=== PATIENT | male | born 1980 | race Caucasian/White ===

== ENCOUNTER 2017-09-08 11:53 | Inpatient (IN) | payer SELFPAY ==
[2017-09-08] MEDS ORDERED: NORMAL SALINE 1000 ML 1,000 ML IV ONE (12:19)
[2017-09-08] MEDS ORDERED: CEFTRIAXONE INJ 1000 MG VIAL IV ONE (12:22)
--- NOTE | 2017-09-08 12:44 | ER Document Report ---
ED General - General Chief Complaint: Abdominal Pain Stated Complaint: ABDOMINAL PAIN Time Seen by Provider: 09/08/17 12:09 Notes: Patient says he has been having swelling of her lower extremities for the past 3 weeks. It is so swollen he is unable to walk. For the past week and a half patient says is been coughing up blood. Says he is having difficulty with breathing. Also complaining of abdominal pains and that his abdomen is swollen. Has not had any vomiting, but has had diarrhea 3 or 4 times a day over the last 3 weeks. No blood seen. Has not had any fever. Patient has a history of Crohn's disease. Never had any surgery for anything. Patient also has a history of IV drug use, but says he has not used any for at least 2 years. Patient is here with his mother who provides some historical information. TRAVEL OUTSIDE OF THE [place] IN LAST 30 DAYS: No - Related Data Allergies/Adverse Reactions: No Known Allergies Allergy (Verified 09/08/17 13:06) Past Medical History - Social History Smoking Status: Current Every Day Smoker Family History: Reviewed & Not Pertinent, Other Endocrine Medical History: Denies: Hx Diabetes Mellitus Type 1, Hx Diabetes Mellitus Type 2 GI Medical History: Reports: Hx Crohn's Disease - Never had any surgeries Review of Systems - Review of Systems Notes: REVIEW OF SYSTEMS: CONSTITUTIONAL : Denies fever. Has felt generalized weakness. EENT: Denies eye, ear, nose or mouth or throat pain or other symptoms. CARDIOVASCULAR: Denies chest pain. RESPIRATORY: Has had chest congestion and a cough, productive of blood at times. Short of breath at times, as well. GASTROINTESTINAL: Complains of generalized abdominal pain and tenderness. No nausea or vomiting, but has diarrhea, see HPI. GENITOURINARY: Denies difficulty or painful urinating, urinary frequency, blood in urine. MUSCULOSKELETAL: Denies back or neck pain. Denies joint pain or swelling. SKIN: Denies rash or skin lesions. Bilateral lower extremity edema, +3 bilaterally. Pinkish purplish hue to the skin of both lower legs. Good capillary refill, however. NEUROLOGICAL: Denies LOC or altered mental status. Denies headache. Denies sensory loss or motor deficits. ALL OTHER SYSTEMS REVIEWED AND NEGATIVE. Physical Exam - Vital signs Vitals: Temp Pulse Resp BP Pulse Ox 98.8 F 134 H 32 H 77/42 L 85 L 09/08/17 12:01 09/08/17 12:01 09/08/17 12:01 09/08/17 12:01 09/08/17 12:01 Interpretation: Hypotensive, Tachycardic. No: Hypoxic - Notes Notes: PHYSICAL EXAMINATION: GENERAL: Ill-appearing. Hypotensive and tachycardic. HEAD: Atraumatic, normocephalic. EYES: Pupils equal round and reactive to light, extraocular movements intact. ENT: oropharynx clear without exudates. Moist mucous membranes. NECK: Normal range of motion, supple. LUNGS: Breath sounds clear and equal bilaterally. HEART: Regular rate and rhythm without murmurs. Heart rate about 120 at bedside. ABDOMEN: Diffusely tender throughout the entire abdomen, perhaps with some slight guarding. No masses. No rebound present. BACK: No tenderness throughout entire back. EXTREMITIES: Normal range of motion without pain. Bilateral lower extremity edema, +3 bilaterally. Pinkish purplish hue to the skin of both lower legs. Good capillary refill, however. Negative Homans sign bilaterally. NEUROLOGICAL: Normal speech, gait not tested, as patient is too weak to stand. Normal sensory, motor, and reflex exams. Awake, alert, and oriented x3. PSYCH: Normal mood, normal affect. SKIN: Patient has numerous sites of previous injections of drugs that are now scarred on both forearms. Course - Re-evaluation Re-evalutation: 09/08/17 17:53 Patient's chest x-ray showed multiple bilateral pneumonias. Urinalysis looks like a UTI. Abdomen CT shows huge spleen. Lab work shows his platelet count of only 14,000. Significant bandemia and shift in differential for the CBC. Hemoglobin 5.9. Patient had a central line placed by Dr. Martinez. Patient was given initially a gram of Rocephin IV as well as a couple of liters of saline. It was at this point that the hospitalist was contacted who accepted care of the patient and he will be admitted to ICU. Patient's mother made aware by me of the severity of his situation and condition. Patient was question as to whether he might be HIV positive and he denied being so. - Vital Signs Vital signs: Temp Pulse Resp BP Pulse Ox 100.4 F 134 H 34 H 77/46 L 99 09/08/17 13:59 09/08/17 12:01 09/08/17 17:01 09/08/17 17:00 09/08/17 17:01 - Laboratory Result Diagrams: 09/08/17 13:50 09/08/17 12:25 Laboratory results interpreted by me: 09/08/17 09/08/17 09/08/17 12:25 12:25 12:25 RBC Hgb Hct MCV MCH RDW Plt Count Seg Neuts % (Manual) Lymphocytes % (Manual) Monocytes % (Manual) Abs Lymphs (Manual) PT VBG pCO2 30.1 L VBG HCO3 17.0 L Sodium 123.7 L Potassium 3.2 L Chloride 87 L Carbon Dioxide 15 L Anion Gap 22 H BUN 68 H Creatinine 3.84 H Est GFR ( Amer) 22 L Est GFR (Non-Af Amer) 18 L Glucose 74 L Lactic Acid 8.3 H Calcium 7.5 L Total Bilirubin 1.4 H Direct Bilirubin 1.0 H ALT 13 L Total Protein 6.2 L Albumin 2.6 L TSH Urine Protein Urine Blood Urine Urobilinogen Ur Leukocyte Esterase 09/08/17 09/08/17 09/08/17 13:50 13:50 13:50 RBC 2.22 L Hgb 5.9 L Hct 17.6 L MCV 79 L MCH 26.4 L RDW 18.7 H Plt Count 14 L* Seg Neuts % (Manual) 94 H Lymphocytes % (Manual) 2 L Monocytes % (Manual) 1 L Abs Lymphs (Manual) 0.1 L PT 30.7 H VBG pCO2 VBG HCO3 Sodium Potassium Chloride Carbon Dioxide Anion Gap BUN Creatinine Est GFR ( Amer) Est GFR (Non-Af Amer) Glucose Lactic Acid Calcium Total Bilirubin Direct Bilirubin ALT Total Protein Albumin TSH 0.26 L Urine Protein Urine Blood Urine Urobilinogen Ur Leukocyte Esterase 09/08/17 14:40 RBC Hgb Hct MCV MCH RDW Plt Count Seg Neuts % (Manual) Lymphocytes % (Manual) Monocytes % (Manual) Abs Lymphs (Manual) PT VBG pCO2 VBG HCO3 Sodium Potassium Chloride Carbon Dioxide Anion Gap BUN Creatinine Est GFR ( Amer) Est GFR (Non-Af Amer) Glucose Lactic Acid Calcium Total Bilirubin Direct Bilirubin ALT Total Protein Albumin TSH Urine Protein 30 H Urine Blood MODERATE H Urine Urobilinogen 4.0 H Ur Leukocyte Esterase LARGE H - Diagnostic Test Radiology reviewed: Image reviewed, Reports reviewed - CT of the abdomen and pelvis without contrast shows patient has a significantly enlarged spleen. Findings of the bowel consistent with Crohn's. Pneumonia seen in the bases of the lungs bilaterally. Radiology results interpreted by me: 09/08/17 17:56 Chest x-ray with bilateral multiple pneumonia. - EKG Interpretation by Me EKG shows normal: Sinus rhythm Rate: Tachycardia Critical Care Note - Critical Care Note Total time excluding time spent on procedures (mins): 60 Discharge - Discharge Clinical Impression: Sepsis, Hypotension, Pneumonia, Thrombocytopenia, Splenomegaly, History of substance abuse Condition: Serious Disposition: ADMITTED INPATIENT Admitting Provider: Hospitalist Unit Admitted: ICU
[2017-09-08 12:49] LABS: VENOUS BLOOD BASE EXCESS -7.3 mmol/L; VENOUS BLOOD PCO2 30.1 mmHg (35-63); VENOUS BLOOD PH 7.37 (7.30-7.42)
--- NOTE | 2017-09-08 13:07 | EKG REPORT ---
SEVERITY:- BORDERLINE ECG - SINUS TACHYCARDIA LOW VOLTAGE IN FRONTAL LEADS BORDERLINE T WAVE ABNORMALITIES : Confirmed by: Olegario Stewart MD 08-Sep-2017 13:06:04
[2017-09-08 13:13] LABS: ALANINE AMINOTRANSFERASE 13 U/L (21-72); ALBUMIN 2.6 g/dL (3.5-5.0); ALKALINE PHOSPHATASE 68 U/L (38-126); ASPARTATE AMINO TRANSFERASE 44 U/L (17-59); BILIRUBIN,TOTAL 1.4 mg/dL (0.2-1.3); BLOOD UREA NITROGEN 68 mg/dL (7-20); CALCIUM 7.5 mg/dL (8.4-10.2); GLUCOSE 74 mg/dL (75-110); POTASSIUM 3.2 mmol/L (3.6-5.0); TOTAL PROTEIN 6.2 g/dL (6.3-8.2)
--- NOTE | 2017-09-08 13:19 | RADIOLOGY REPORT (SQ) ---
EXAM DESCRIPTION: CHEST SINGLE VIEW COMPLETED DATE/TIME: 09/08/2017 1:09 pm REASON FOR STUDY: Difficulty breathing and shortness of breath. COMPARISON: None. EXAM PARAMETERS: NUMBER OF VIEWS: One view. TECHNIQUE: Single frontal radiographic view of the chest acquired. RADIATION DOSE: NA LIMITATIONS: None. FINDINGS: LUNGS AND PLEURA: Infiltrate in the left lower lobe and infiltrate in the left upper lobe. Patchy densities in the right lower lobe and lateral inferior right upper lobe. MEDIASTINUM AND HILAR STRUCTURES: No masses. Contour normal. HEART AND VASCULAR STRUCTURES: Heart normal in size. Normal vasculature. BONES: No acute findings. HARDWARE: None in the chest. OTHER: No other significant finding. IMPRESSION: SEVERAL AREAS OF INFILTRATE CONCERNING FOR PNEUMONIA. TECHNICAL DOCUMENTATION: JOB ID: [id number] [employer]- All Rights Reserved Reading location - IP/workstation name: [email or web address]
[2017-09-08 13:22] LABS: CARBON DIOXIDE 15 mmol/L (22-30); CHLORIDE 87 mmol/L (98-107); SODIUM 123.7 mmol/L (137-145)
[2017-09-08 13:26] LABS: ANION GAP 22 (5-19)
[2017-09-08] MEDS ORDERED: FENTANYL CITRATE INJ/PF 100 MCG/2 ML AMPUL IV ONE (14:01)
[2017-09-08] MEDS ORDERED: ONDANSETRON HCL INJ/PF 4 MG/2 ML SDV IV PRN (14:13)
[2017-09-08] MEDS ORDERED: OXYCODONE-ACETAMINOPHEN 5-325 MG TABLET PO PRN (14:13)
[2017-09-08] MEDS ORDERED: NORMAL SALINE 1000 ML 1,000 ML IV PRN (14:13)
[2017-09-08] MEDS ORDERED: ALBUTEROL SULFATE 0.083% NEB 2.5 MG/3 ML AMPUL NEB PRN (14:13)
[2017-09-08] MEDS ORDERED: ZOLPIDEM TARTRATE 5 MG TABLET PO PRN (14:13)
[2017-09-08] MEDS ORDERED: ACETAMINOPHEN 325 MG TABLET PO PRN (14:13)
[2017-09-08] MEDS ORDERED: PHARMACY COMMUNICATION ORDER MC NR (14:15)
[2017-09-08 14:19] LABS: HEMATOCRIT 17.6 % (37.9-51.0); MEAN CORPUSCULAR HEMOGLOBIN 26.4 pg (27.0-33.4); MEAN CORPUSCULAR HGB CONC 33.3 g/dL (32.0-36.0); MEAN CORPUSCULAR VOLUME 79 fl (80-97); RED BLOOD COUNT 2.22 10^6/uL (4.35-5.55); RED CELL DISTRIBUTION WIDTH 18.7 % (11.5-14.0); WHITE BLOOD COUNT 6.2 10^3/uL (4.0-10.5)
[2017-09-08 14:27] LABS: INTERNATIONAL RATION (INR) 2.78; PROTHROMBIN TIME 30.7 SEC (11.4-15.4)
[2017-09-08 14:30] LABS: HEMOGLOBIN 5.9 g/dL (13.5-17.0)
[2017-09-08 14:31] LABS: PLATELET COUNT 14 10^3/uL (150-450)
[2017-09-08 15:07] LABS: ABSOLUTE LYMPHOCYTES# (MANUAL) 0.1 10^3/uL (0.5-4.7); ABSOLUTE MONOCYTES # (MANUAL) 0.1 10^3/uL (0.1-1.4); BAND NEUTROPHILS % (MANUAL) 3 % (3-5); BASOPHILS % (MANUAL) 0 % (0-2); EOSINOPHILS % (MANUAL) 0 % (0-6); LYMPHOCYTES % (MANUAL) 2 % (13-45); MONOCYTES % (MANUAL) 1 % (3-13); SEGMENTED NEUTROPHILS % (MAN) 94 % (42-78); TOTAL CELLS COUNTED 100; TOXIC GRANULATION 2+
[2017-09-08 15:08] LABS: ANISOCYTOSIS 2+; HYPOCHROMASIA 1+; OVALOCYTES 2+; PLATELET COMMENT DECREASED; POIKILOCYTOSIS 2+; POLYCHROMASIA SLIGHT; ROULEAUX 1+; TARGET CELLS SLIGHT; TOXIC VACUOLATION PRESENT
[2017-09-08 15:29] LABS: APPEARANCE,URINE CLOUDY; BILIRUBIN,URINE NEGATIVE (NEGATIVE); GLUCOSE, URINE NEGATIVE (NEGATIVE); KETONES,URINE NEGATIVE (NEGATIVE); LEUKOCYTE ESTERASE,URINE LARGE (NEGATIVE); NITRITE,URINE NEGATIVE (NEGATIVE); PROTEIN,URINE 30 mg/dL (NEGATIVE); URINE SPECIFIC GRAVITY 1.014
[2017-09-08 15:30] LABS: COLOR,URINE YELLOW
[2017-09-08] MEDS ORDERED: METHYLPREDNISOLONE INJ 40 MG/1 ML SDV IV ONE (15:30)
--- NOTE | 2017-09-08 15:35 | RADIOLOGY REPORT (SQ) ---
EXAM DESCRIPTION: CT ABD/PELVIS NO ORAL OR IV COMPLETED DATE/TIME: 09/08/2017 3:04 pm REASON FOR STUDY: Abdominal pain, low blood pressure, Hx Crohn's COMPARISON: 01/16/2013 TECHNIQUE: CT scan of the abdomen and pelvis performed without intravenous or oral contrast. Images reviewed with lung, soft tissue, and bone windows. Reconstructed coronal and sagittal MPR images revi ewed. All images stored on PACS. All CT scanners at this facility use dose modulation, iterative reconstruction, and/or weight based d osing when appropriate to reduce radiation dose to as low as reasonably achievable (ALARA). [facility]: Dose Right [facility]: CareDose [facility]: Dose Right [facility]: Teradose 4D [facility]: Smart Mobileum RADIATION DOSE: CT Rad equipment meets quality standard of care and radiation dose reduction techniq ues were employed. CTDIvol: 5.1 mGy. DLP: 289 mGy-cm.mGy. LIMITATIONS: None. FINDINGS: LOWER CHEST: There is considerable multicentric opacification in both lower lung manuel. There is the appearance of consolidation in the lower lobes and smaller areas of ground-glass opacifi cation. NON-CONTRASTED LIVER, SPLEEN, ADRENALS: Liver is unremarkable. Splenomegaly is present. Adrenals ar e normal. PANCREAS: No masses. No peripancreatic inflammatory changes. GALLBLADDER: No identified stones by CT criteria. No inflammatory changes to suggest cholecystitis. RIGHT KIDNEY AND URETER: No suspicious masses. Assessment limited by lack of IV contrast. No signif icant calcifications. No hydronephrosis or hydroureter. LEFT KIDNEY AND URETER: No suspicious masses. Assessment limited by lack of IV contrast. No signifi cant calcifications. No hydronephrosis or hydroureter. AORTA AND RETROPERITONEUM: No aneurysm. No retroperitoneal masses or adenopathy. BOWEL AND PERITONEAL CAVITY: There is thickening of the wall of some small bowel loops. APPENDIX: Not identified. PELVIS, BLADDER, AND ABDOMINAL WALL:Urinary bladder is normal. No free fluid. BONES: No significant findings. OTHER: No other significant finding. IMPRESSION: 1. Multicentric pneumonia is in both lower lungs. Possible septic emboli. Consider CT the chest for further evaluation. 2. Marked splenomegaly. 3. There is wall thickening in small bowel loops consistent with the history of Crohn's. COMMENT: Quality ID # [id number]: Final reports with documentation of one or more dose reduction techniques (e.g., Automated exposure control, adjustment of the mA and/or kV according to patient size, use of iterative reconstruction technique) TECHNICAL DOCUMENTATION: JOB ID: [id number] [employer]- All Rights Reserved Reading location - IP/workstation name: [email or web address]
[2017-09-08 15:40] LABS: URINE AMPHETAMINES SCREEN NEGATIVE; URINE BARBITURATES SCREEN NEGATIVE; URINE BENZODIAZEPINES SCREEN NEGATIVE; URINE COCAINE SCREEN NEGATIVE; URINE MARIJUANA (THC) SCREEN NEGATIVE; URINE METHADONE SCREEN NEGATIVE; URINE PHENCYCLIDINE SCREEN NEGATIVE
[2017-09-08] MEDS ORDERED: TUBERCULIN,PURIF.PROT.DERIV. 5 TU/0.1 ML TEST 1 ML VIAL ID ONE (16:00)
[2017-09-08] MEDS ORDERED: VANCOMYCIN HCL 0 MG in DEXTROSE 5%-WATER 250 ML IV NR (16:30)
--- NOTE | 2017-09-08 16:39 | PDOC H&P ---
History of Present Illness Admission Date/PCP: September 08, 2017 No PCP History of Present Illness: LORELEI ALFARO is a 36 year old male was brought by his mother by private vehicle to ED. Accordingly patient had been sick for the past 2 weeks. Today he had been spitting up blood. Patient states that he has been having abdominal pain. Had not been eating. He complains of generalized weakness. Patient also complains of chills and some fever. He has a history of Crohn's disease however has not been taking his regular medications because of losing his insurance. Upon arrival to emergency room blood pressure was in the low 70s and there was poor IV access. Due to patient's presentation a central line was inserted for fluid resuscitation.Our service was consulted and at the time of consult blood work was pending. We recommended that ED physician to request a CT scan of the chest and abdomen and pelvis after evaluating patient. We inquired patient if he does have a history of HIV however he denied. Patient does have a history of drug abuse but at the present time he states that he takes medication that is oxymorphone and OxyIR for his chronic pain. Patient was explained about the seriousness of his medical condition. He initially wanted not to be resuscitated but was amenable to go for full code at least for the first 48 hours and his mother will be his overall gait for decision making if he were to turn for the worse Past Medical History Cardiac Medical History: Reports: None Pulmonary Medical History: Reports: None EENT Medical History: Reports: None Neurological Medical History: Reports: None Endocrine Medical History: Reports: None Renal/ Medical History: Reports: None Malignancy Medical History: Reports: None GI Medical History: Reports: Crohn's Disease Musculoskeltal Medical History: Reports: None Skin Medical History: Reports: None Psychiatric Medical History: Reports: Substance Abuse, Tobacco Dependency Social History Smoking Status: Former Smoker Drugs: Marijuana - Advance Directive Resuscitation Status: Full Code Surrogate healthcare decision maker:: His mother Family History Family History: Reviewed & Not Pertinent, Other Parental Family History Reviewed: Yes Children Family History Reviewed: Yes Sibling(s) Family History Reviewed.: Yes Medication/Allergy Allergies/Adverse Reactions: No Known Allergies Allergy (Verified 09/08/17 13:06) Review of Systems Constitutional: PRESENT: anorexia, chills, fatigue, weakness Eyes: ABSENT: visual disturbances Ears: ABSENT: hearing changes Nose, Mouth, and Throat: ABSENT: headache(s), mouth pain, sore throat Cardiovascular: PRESENT: dyspnea on exertion, edema. ABSENT: chest pain Respiratory: PRESENT: dyspnea, hemoptysis Gastrointestinal: PRESENT: abdominal pain, nausea. ABSENT: vomiting Genitourinary: ABSENT: dysuria, hematuria Musculoskeletal: PRESENT: deformity. ABSENT: back pain Neurological: PRESENT: weakness Psychiatric: ABSENT: anxiety, hallucinations Endocrine: ABSENT: polydipsia, polyphagia, polyuria Hematologic/Lymphatic: ABSENT: lymphadenopathy Physical Exam Vital Signs: Temp Pulse Resp BP Pulse Ox 100.4 F 134 H 32 H 77/42 L 85 L 09/08/17 13:59 09/08/17 12:01 09/08/17 12:01 09/08/17 12:01 09/08/17 12:01 General appearance: PRESENT: cooperative, disheveled, thin Head exam: PRESENT: atraumatic, normocephalic Eye exam: PRESENT: conjunctiva pale, EOMI, PERRLA, other - Sunken eyes Ear exam: PRESENT: normal external ear exam. ABSENT: bleeding, drainage Mouth exam: PRESENT: dry mucosa, neck supple, tongue midline Teeth exam: PRESENT: poor dentation Neck exam: PRESENT: full ROM. ABSENT: JVD, lymphadenopathy, tenderness, thyromegaly, tracheal deviation Respiratory exam: PRESENT: crackles. ABSENT: tachypnea Cardiovascular exam: PRESENT: tachycardia. ABSENT: diastolic murmur, systolic murmur Vascular exam: PRESENT: pallor GI/Abdominal exam: PRESENT: guarding, hypoactive bowel sounds, tenderness. ABSENT: distended Neurological exam: PRESENT: alert, awake, oriented to person, oriented to place , oriented to time, oriented to situation, CN II-XII grossly intact Psychiatric exam: PRESENT: depressed Skin exam: PRESENT: pallor Results Laboratory Results: 09/08/17 12:25 09/08/17 09/08/17 09/08/17 12:25 12:25 12:25 WBC Cancelled RBC Cancelled Hgb Cancelled Hct Cancelled MCV Cancelled MCH Cancelled MCHC Cancelled RDW Cancelled Plt Count Cancelled Seg Neutrophils % Cancelled Lymphocytes % Cancelled Monocytes % Cancelled Eosinophils % Cancelled Basophils % Cancelled Absolute Neutrophils Cancelled Absolute Lymphocytes Cancelled Absolute Monocytes Cancelled Absolute Eosinophils Cancelled Absolute Basophils Cancelled VBG pH VBG pCO2 VBG HCO3 VBG Base Excess Sodium 123.7 L Potassium 3.2 L Chloride 87 L Carbon Dioxide 15 L Anion Gap 22 H BUN 68 H Creatinine 3.84 H Est GFR ( Amer) 22 L Est GFR (Non-Af Amer) 18 L Glucose 74 L Lactic Acid 8.3 H Calcium 7.5 L Total Bilirubin 1.4 H AST 44 ALT 13 L Alkaline Phosphatase 68 Total Protein 6.2 L Albumin 2.6 L 09/08/17 09/08/17 12:25 13:50 WBC RBC Hgb Hct MCV MCH MCHC RDW Plt Count Seg Neutrophils % Not Reportable Lymphocytes % Not Reportable Monocytes % Not Reportable Eosinophils % Not Reportable Basophils % Not Reportable Absolute Neutrophils Not Reportable Absolute Lymphocytes Not Reportable Absolute Monocytes Not Reportable Absolute Eosinophils Not Reportable Absolute Basophils Not Reportable VBG pH 7.37 VBG pCO2 30.1 L VBG HCO3 17.0 L VBG Base Excess -7.3 Sodium Potassium Chloride Carbon Dioxide Anion Gap BUN Creatinine Est GFR ( Amer) Est GFR (Non-Af Amer) Glucose Lactic Acid Calcium Total Bilirubin AST ALT Alkaline Phosphatase Total Protein Albumin Impressions: Chest X-Ray 09/08/17 12:21 IMPRESSION: SEVERAL AREAS OF INFILTRATE CONCERNING FOR PNEUMONIA. Assessment & Plan - Diagnosis (1) Septic shock Is this a current diagnosis for this admission?: Yes Plan: Lactic acid elevated. We will continue fluid resuscitation and patient will be placed on levo fed. Will repeat lactic acid level within 2 hours (2) Multifocal pneumonia Is this a current diagnosis for this admission?: Yes Plan: Patient will be placed on Zithromax, Rocephin and vancomycin. Will order an HIV test (3) Acute renal failure Is this a current diagnosis for this admission?: Yes Plan: Due to hypoperfusion and poor oral intake. We will continue with fluid resuscitation and to trend renal (4) Severe protein-calorie malnutrition (Robert: less than 60% of standard weight ) Is this a current diagnosis for this admission?: Yes Plan: Patient basically emaciated and therefore will be a major risk factor and increase morbidity (5) Crohns disease Qualifiers: Digestive disease complication type: unspecified complication Is this a current diagnosis for this admission?: Yes Plan: A CT scan of the abdomen and pelvis had been recommended and will follow up with port. Patient will be placed on IV steroids and Flagyl IV (6) Opioid dependence Qualifiers: Substance use status: uncomplicated Qualified Code(s): F11.20 - Opioid dependence, uncomplicated Is this a current diagnosis for this admission?: Yes Plan: Will provide pain management. (7) Cellulitis of left lower extremity Is this a current diagnosis for this admission?: Yes - Time Time Spent: Greater than 70 Minutes - Inpatient Certification Based on my medical assessment, after consideration of the patient's comorbidities, presenting symptoms, or acuity I expect that the services needed warrant INPATIENT care.: Yes I certify that my determination is in accordance with my understanding of Medicare's requirements for reasonable and necessary INPATIENT services [42 CFR 412.3e].: Yes Medical Necessity: Need Close Monitoring Due to Risk of Patient Decompensation, Need For IV Fluids, Need For Continuous Telemetry Monitoring, Need for Neurological Checks, Need for Pain Control, Need for IV Antibiotics
[2017-09-08] MEDS: DEXTROSE 5%-WATER 250 ML with NOREPINEPHRINE BITARTRATE 4 MG IV PRN ×4 (17:25→22:06)
[2017-09-08] MEDS: METRONIDAZOLE 500 MG/NS RTU 100 ML IV SCH (17:27)
[2017-09-08] MEDS: AZITHROMYCIN 500 MG in DEXTROSE 5%-WATER 250 ML IV SCH (18:49)
--- NOTE | 2017-09-08 18:50 | RADIOLOGY REPORT (SQ) ---
EXAM DESCRIPTION: CT CHEST WITHOUT COMPLETED DATE/TIME: 09/08/2017 6:37 pm REASON FOR STUDY: eval for septic emboli COMPARISON: CORRELATION MADE TO CT ABDOMEN PERFORMED EARLIER ON THE SAME DAY. TECHNIQUE: CT scan performed of the chest without intravenous contrast. Images reviewed with lung, soft tissue and bone windows. Reconstructed coronal and sagittal MPR images reviewed. All images st ored on PACS. All CT scanners at this facility use dose modulation, iterative reconstruction, and/or weight based d osing when appropriate to reduce radiation dose to as low as reasonably achievable (ALARA). [facility]: Dose Right [facility]: CareDose [facility]: Dose Right [facility]: Teradose 4D [facility]: Smart Sedicidodici RADIATION DOSE: CT Rad equipment meets quality standard of care and radiation dose reduction techniq ues were employed. CTDIvol: 6.1 mGy. DLP: 237 mGy-cm. mGy. LIMITATIONS: Limited by lack of IV contrast. FINDINGS: LUNGS AND PLEURA: There is diffuse multifocal ground-glass nodular airspace disease with m ultiple cavitary nodules identified. There are more significant areas of consolidation involving the right middle lobe, lingula, and bilateral lower lobes. HILAR AND MEDIASTINAL STRUCTURES: There is likely diffuse mediastinal and hilar lymphadenopathy howev er evaluation is limited due to lack of contrast. HEART AND VASCULAR STRUCTURES: All stable degree of hepatosplenomegaly. UPPER ABDOMEN: No significant findings. Limited exam. THYROID AND OTHER SOFT TISSUES: No masses. No adenopathy. BONES: No significant finding. HARDWARE: There is a right-sided PICC which terminates within the lower SVC. There is a nasogastric tube which terminates within the mid esophagus. OTHER: No other significant findings. IMPRESSION: Diffuse multifocal ground-glass and nodular airspace disease with multiple cavitary nodu les along with areas of consolidation involving the right middle lobe, lingula, and bilateral lower l obes. Findings are nonspecific and can be secondary to infectious or inflammatory processes includin g opportunistic infections. Correlate with patient's overall clinical history. Probable mediastinal lymphadenopathy which could be reactive to infectious/inflammatory process, or n eoplastic. Stable hepatosplenomegaly. Nasogastric tube located within the mid esophagus. Recommend advancement. TECHNICAL DOCUMENTATION: JOB ID: [id number] Quality ID # [id number]: Final reports with documentation of one or more dose reduction techniques (e.g., Au tomated exposure control, adjustment of the mA and/or kV according to patient size, use of iterative reconstruction technique) 2010 [employer]- All Rights Reserved Reading location - IP/workstation name: [email or web address]
--- NOTE | 2017-09-08 19:10 | RADIOLOGY REPORT (SQ) ---
EXAM DESCRIPTION: KUB/ABDOMEN (SINGLE VIEW) COMPLETED DATE/TIME: 09/08/2017 6:54 pm REASON FOR STUDY: Check Placement of NG Tube COMPARISON: CT FROM 09/08/2017 NUMBER OF VIEWS: One view. TECHNIQUE: Supine radiographic image of the abdomen acquired. LIMITATIONS: None. FINDINGS: Limited abdominal radiograph demonstrates adequate position of the nasogastric tube. Part ial visualization of known multifocal airspace disease. Gas distended loops seen centrally. Hepatos plenomegaly. IMPRESSION: SATISFACTORY PLACEMENT NASOGASTRIC TUBE. TECHNICAL DOCUMENTATION: JOB ID: [id number] [employer]- All Rights Reserved Reading location - IP/workstation name: [email or web address]
[2017-09-08] MEDS: IPRATROPIUM/ALBUTEROL 0.5-2.5 MG/3 ML AMPUL NEB SCH (19:58)
[2017-09-08 20:35] LABS: ARTERIAL BLOOD BASE EXCESS -8.1 mmol/L; ARTERIAL BLOOD H2CO3 0.82 mmol/L (1.05-1.35); ARTERIAL BLOOD O2 SATURATION 96.8 % (94-98); ARTERIAL BLOOD PCO2 27.1 mmHg (35-45); ARTERIAL BLOOD PH 7.39 (7.35-7.45); ARTERIAL BLOOD PO2 87.7 mmHg (80-100); ARTERIAL BLOOD TOTAL CO2 16.8 mmol/L (23-27)
[2017-09-08 20:40] LABS: ARTERIAL BLOOD FIO2 50%
[2017-09-08] MEDS: METHYLPREDNISOLONE INJ 40 MG/1 ML SDV IV SCH (21:33)
[2017-09-08] MEDS: LORAZEPAM INJ 2 MG/1 ML VIAL IV PRN (21:57)
[2017-09-08] MEDS ORDERED: VANCOMYCIN HCL 500 MG in DEXTROSE 5%-WATER 100 ML IV SCH (22:00)
[2017-09-08] MEDS ORDERED: GLUCAGON,HUMAN RECOMB 1 MG INJ IM PRN (22:16)
[2017-09-08] MEDS ORDERED: DEXTROSE 40% GEL 15 GM TUBE PO PRN ×2 (22:16)
[2017-09-08] MEDS ORDERED: DEXTROSE 50%-WATER 25 GM/50 ML DISP.SYRIN IV PRN ×2 (22:16)
[2017-09-08] MEDS: NORMAL SALINE 1000 ML 1,000 ML IV PRN (22:54)
[2017-09-08 23:19] LABS: ALANINE AMINOTRANSFERASE 14 U/L (21-72); ALKALINE PHOSPHATASE 61 U/L (38-126); ANION GAP 16 (5-19); ASPARTATE AMINO TRANSFERASE 37 U/L (17-59); BILIRUBIN,TOTAL 1.3 mg/dL (0.2-1.3); BLOOD UREA NITROGEN 62 mg/dL (7-20); CARBON DIOXIDE 15 mmol/L (22-30); CHLORIDE 93 mmol/L (98-107); GLUCOSE 112 mg/dL (75-110); SODIUM 124.3 mmol/L (137-145)
[2017-09-08 23:21] LABS: MEAN CORPUSCULAR HEMOGLOBIN 26.8 pg (27.0-33.4); MEAN CORPUSCULAR HGB CONC 33.6 g/dL (32.0-36.0); MEAN CORPUSCULAR VOLUME 80 fl (80-97); RED BLOOD COUNT 2.39 10^6/uL (4.35-5.55); RED CELL DISTRIBUTION WIDTH 19.3 % (11.5-14.0); WHITE BLOOD COUNT 10.8 10^3/uL (4.0-10.5)
[2017-09-08 23:40] LABS: ABSOLUTE MONOCYTES # (MANUAL) 0.3 10^3/uL (0.1-1.4); ABSOLUTE NEUTROPHILS# (MANUAL) 10.5 10^3/uL (1.7-8.2); BASOPHILS % (MANUAL) 0 % (0-2); EOSINOPHILS % (MANUAL) 0 % (0-6); LYMPHOCYTES % (MANUAL) 0 % (13-45); MONOCYTES % (MANUAL) 3 % (3-13); SEGMENTED NEUTROPHILS % (MAN) 97 % (42-78); TOTAL CELLS COUNTED 100
[2017-09-08 23:41] LABS: TOXIC GRANULATION 1+
[2017-09-08 23:42] LABS: ANISOCYTOSIS 2+; HYPOCHROMASIA SLIGHT; POIKILOCYTOSIS 1+; SCHISTOCYTES 1+; TARGET CELLS SLIGHT; TEAR DROP CELLS SLIGHT; TOXIC VACUOLATION PRESENT
[2017-09-08 23:42] LABS: CALCIUM 6.8 mg/dL (8.4-10.2)
[2017-09-08 23:44] LABS: PLATELET COUNT 11 10^3/uL (150-450)
[2017-09-08 23:45] LABS: HEMOGLOBIN 6.4 g/dL (13.5-17.0)
[2017-09-08 23:47] LABS: PLATELET COMMENT DECREASED
[2017-09-09] MEDS: METRONIDAZOLE 500 MG/NS RTU 100 ML IV SCH ×4 (00:31→17:21)
[2017-09-09] MEDS: NORMAL SALINE 1000 ML 1,000 ML IV PRN (00:45)
[2017-09-09 01:08] LABS: PHOSPHORUS 4.8 mg/dL (2.5-4.5)
[2017-09-09] MEDS: POTASSI CL 20 MEQ/50 ML RIDER 20 MEQ/50 ML RTUPB IV SCH ×2 (01:31→06:41)
[2017-09-09 04:23] LABS: HEMATOCRIT 21.4 % (37.9-51.0); MEAN CORPUSCULAR HEMOGLOBIN 26.1 pg (27.0-33.4); MEAN CORPUSCULAR HGB CONC 32.4 g/dL (32.0-36.0); MEAN CORPUSCULAR VOLUME 80 fl (80-97); RED BLOOD COUNT 2.66 10^6/uL (4.35-5.55); RED CELL DISTRIBUTION WIDTH 19.3 % (11.5-14.0); WHITE BLOOD COUNT 13.6 10^3/uL (4.0-10.5)
[2017-09-09 04:38] LABS: ALANINE AMINOTRANSFERASE 16 U/L (21-72); ALKALINE PHOSPHATASE 46 U/L (38-126); ANION GAP 14 (5-19); ASPARTATE AMINO TRANSFERASE 44 U/L (17-59); BILIRUBIN,DIRECT 1.3 mg/dL (0.0-0.4); BILIRUBIN,TOTAL 1.6 mg/dL (0.2-1.3); BLOOD UREA NITROGEN 58 mg/dL (7-20); CARBON DIOXIDE 16 mmol/L (22-30); CHLORIDE 100 mmol/L (98-107); GLUCOSE 129 mg/dL (75-110); POTASSIUM 3.6 mmol/L (3.6-5.0); TOTAL PROTEIN 5.2 g/dL (6.3-8.2)
[2017-09-09 04:41] LABS: ABSOLUTE LYMPHOCYTES# (MANUAL) 0.4 10^3/uL (0.5-4.7); ABSOLUTE MONOCYTES # (MANUAL) 0.5 10^3/uL (0.1-1.4); ABSOLUTE NEUTROPHILS# (MANUAL) 12.6 10^3/uL (1.7-8.2); BAND NEUTROPHILS % (MANUAL) 1 % (3-5); BASOPHILS % (MANUAL) 0 % (0-2); EOSINOPHILS % (MANUAL) 0 % (0-6); LYMPHOCYTES % (MANUAL) 3 % (13-45); MONOCYTES % (MANUAL) 4 % (3-13); SEGMENTED NEUTROPHILS % (MAN) 92 % (42-78); TOTAL CELLS COUNTED 100
[2017-09-09 04:43] LABS: PLATELET COMMENT DECREASED; SCHISTOCYTES SLIGHT; TARGET CELLS SLIGHT; TEAR DROP CELLS SLIGHT; TOXIC GRANULATION 1+
[2017-09-09 04:44] LABS: ANISOCYTOSIS 2+; HYPOCHROMASIA SLIGHT; POIKILOCYTOSIS SLIGHT; POLYCHROMASIA SLIGHT
[2017-09-09 04:46] LABS: HEMOGLOBIN 6.9 g/dL (13.5-17.0); PLATELET COUNT 9 10^3/uL (150-450)
[2017-09-09 04:52] LABS: CALCIUM 6.9 mg/dL (8.4-10.2)
[2017-09-09] MEDS: METHYLPREDNISOLONE INJ 40 MG/1 ML SDV IV SCH ×3 (06:34→22:14)
[2017-09-09] MEDS: LORAZEPAM INJ 2 MG/1 ML VIAL IV PRN (06:40)
[2017-09-09] MEDS ORDERED: NORMAL SALINE 250 ML IV PRN ×4 (07:52→15:44)
[2017-09-09] MEDS ORDERED: PHYTONADIONE INJ 10 MG/1 ML AMPULE SUBCUT ONE (07:55)
[2017-09-09] MEDS ORDERED: PHARMACY COMMUNICATION ORDER MC NR (08:00)
[2017-09-09] MEDS ORDERED: INSULIN LISPRO 100 UNIT/ML 3 ML VIAL SUBCUT PRN (08:14)
[2017-09-09] MEDS ORDERED: ACETAMINOPHEN 325 MG TABLET NG PRN (08:30)
[2017-09-09] MEDS ORDERED: ZOLPIDEM TARTRATE 5 MG TABLET NG PRN (08:30)
[2017-09-09] MEDS: IPRATROPIUM/ALBUTEROL 0.5-2.5 MG/3 ML AMPUL NEB SCH ×3 (08:48→20:08)
[2017-09-09 08:58] LABS: FIBRINOGEN 167 mg/dL (209-497); INTERNATIONAL RATION (INR) 3.65; PROTHROMBIN TIME 37.9 SEC (11.4-15.4)
[2017-09-09 08:59] LABS: D-DIMER 2.43 ug/mL (0.00-0.50)
--- NOTE | 2017-09-09 09:10 | RADIOLOGY REPORT (SQ) ---
EXAM DESCRIPTION: KUB/ABDOMEN (SINGLE VIEW) COMPLETED DATE/TIME: 09/09/2017 8:16 am REASON FOR STUDY: Check Placement of NG Tube COMPARISON: 09/08/2017. NUMBER OF VIEWS: One view. TECHNIQUE: Supine radiographic image of the abdomen acquired. LIMITATIONS: None. FINDINGS: Nasogastric tube tip in the stomach. Appearance is otherwise unchanged. IMPRESSION: Nasogastric tube in the stomach. Reading location - IP/workstation name: [email or web address]
[2017-09-09] MEDS: CEFEPIME 2 GM/D5W RTU 2 GM/50 ML RTUPB IV SCH ×2 (11:04→22:13)
[2017-09-09] MEDS ORDERED: CEFTRIAXONE 2 GM/D5W RTU 2 GM/50 ML RTUPB IV SCH (12:00)
[2017-09-09] MEDS: OXYCODONE-ACETAMINOPHEN 5-325 MG TABLET NG PRN (12:29)
--- NOTE | 2017-09-09 12:53 | PDOC PROGRESS REPORT ---
Subjective Progress Note for:: 09/09/17 Subjective:: Unable to obtain due to mental status Review of systems Unable to obtain due to mental status All laboratories and significant diagnostics had been reviewed. Reason For Visit: SEPTIC SHOCK,MULTIFOCAL PNEUMONIA,ABD PAIN Physical Exam Vital Signs: Temp Pulse Resp BP Pulse Ox 94.8 F L 58 L 23 H 91/72 L 100 09/09/17 07:54 09/09/17 07:54 09/09/17 07:54 09/09/17 07:54 09/09/17 07:54 Intake & Output 09/08/17 09/09/17 09/10/17 06:59 06:59 06:59 Output Total 200 75 Balance -200 -75 Weight 65.9 kg General appearance: PRESENT: no acute distress, thin Head exam: PRESENT: atraumatic, normocephalic Eye exam: PRESENT: conjunctiva pale, EOMI, PERRLA Mouth exam: PRESENT: dry mucosa Neck exam: ABSENT: full ROM, JVD, lymphadenopathy, tenderness Respiratory exam: PRESENT: clear to auscultation flakito. ABSENT: tachypnea, unlabored Cardiovascular exam: PRESENT: tachycardia. ABSENT: diastolic murmur, systolic murmur Vascular exam: PRESENT: pallor GI/Abdominal exam: PRESENT: hypoactive bowel sounds, tenderness Extremities exam: PRESENT: +2 edema, other - redness of right and left foot noted. ABSENT: full ROM Musculoskeletal exam: ABSENT: ambulatory Neurological exam: PRESENT: altered, other - obtunded Psychiatric exam: PRESENT: other - obtunded Skin exam: PRESENT: pallor Results Laboratory Results: 09/09/17 03:53 09/09/17 03:53 09/08/17 09/08/17 09/08/17 17:28 20:10 20:10 WBC RBC Hgb Hct MCV MCH MCHC RDW Plt Count Seg Neutrophils % Lymphocytes % Monocytes % Eosinophils % Basophils % Absolute Neutrophils Absolute Lymphocytes Absolute Monocytes Absolute Eosinophils Absolute Basophils Carbonic Acid 0.82 L HCO3/H2CO3 Ratio 19:1 ABG pH 7.39 ABG pCO2 27.1 L ABG pO2 87.7 ABG HCO3 16.0 L ABG O2 Saturation 96.8 ABG Base Excess -8.1 FiO2 50% Sodium Potassium Chloride Carbon Dioxide Anion Gap BUN Creatinine Est GFR ( Amer) Est GFR (Non-Af Amer) Glucose Lactic Acid 5.7 H 5.3 H Calcium Phosphorus Magnesium Total Bilirubin AST ALT Alkaline Phosphatase Total Protein Albumin 09/08/17 09/08/17 09/08/17 20:10 20:10 22:58 WBC 10.8 H RBC 2.39 L Hgb 6.4 L Hct 19.0 L MCV 80 MCH 26.8 L MCHC 33.6 RDW 19.3 H Plt Count 11 L* Seg Neutrophils % Not Reportable Lymphocytes % Not Reportable Monocytes % Not Reportable Eosinophils % Not Reportable Basophils % Not Reportable Absolute Neutrophils Not Reportable Absolute Lymphocytes Not Reportable Absolute Monocytes Not Reportable Absolute Eosinophils Not Reportable Absolute Basophils Not Reportable Carbonic Acid HCO3/H2CO3 Ratio ABG pH ABG pCO2 ABG pO2 ABG HCO3 ABG O2 Saturation ABG Base Excess FiO2 Sodium 124.3 L Potassium 3.0 L* Chloride 93 L Carbon Dioxide 15 L Anion Gap 16 BUN 62 H Creatinine 2.90 H Est GFR ( Amer) 30 L Est GFR (Non-Af Amer) 25 L Glucose 112 H Lactic Acid Calcium 6.8 L* Phosphorus 4.8 H Magnesium 2.0 Total Bilirubin 1.3 AST 37 ALT 14 L Alkaline Phosphatase 61 Total Protein 5.0 L Albumin 2.0 L 09/09/17 09/09/17 03:53 03:53 WBC 13.6 H RBC 2.66 L Hgb 6.9 L Hct 21.4 L MCV 80 MCH 26.1 L MCHC 32.4 RDW 19.3 H Plt Count 9 L* Seg Neutrophils % Not Reportable Lymphocytes % Not Reportable Monocytes % Not Reportable Eosinophils % Not Reportable Basophils % Not Reportable Absolute Neutrophils Not Reportable Absolute Lymphocytes Not Reportable Absolute Monocytes Not Reportable Absolute Eosinophils Not Reportable Absolute Basophils Not Reportable Carbonic Acid HCO3/H2CO3 Ratio ABG pH ABG pCO2 ABG pO2 ABG HCO3 ABG O2 Saturation ABG Base Excess FiO2 Sodium 130.0 L Potassium 3.6 Chloride 100 Carbon Dioxide 16 L Anion Gap 14 BUN 58 H Creatinine 2.34 H Est GFR ( Amer) 38 L Est GFR (Non-Af Amer) 32 L Glucose 129 H Lactic Acid Calcium 6.9 L* Phosphorus Magnesium 2.2 Total Bilirubin 1.6 H AST 44 ALT 16 L Alkaline Phosphatase 46 Total Protein 5.2 L Albumin 2.0 L 09/08/17 20:10 Creatine Kinase 74 Impressions: Chest CT 09/08/17 00:00 IMPRESSION: Diffuse multifocal ground-glass and nodular airspace disease with multiple cavitary nodules along with areas of consolidation involving the right middle lobe, lingula, and bilateral lower lobes. Findings are nonspecific and can be secondary to infectious or inflammatory processes including opportunistic infections. Correlate with patient's overall clinical history. Probable mediastinal lymphadenopathy which could be reactive to infectious/ inflammatory process, or neoplastic. Stable hepatosplenomegaly. Nasogastric tube located within the mid esophagus. Recommend advancement. Chest X-Ray 09/08/17 12:21 IMPRESSION: SEVERAL AREAS OF INFILTRATE CONCERNING FOR PNEUMONIA. Abdomen/Pelvis CT 09/08/17 13:59 IMPRESSION: 1. Multicentric pneumonia is in both lower lungs. Possible septic emboli. Consider CT the chest for further evaluation. 2. Marked splenomegaly. 3. There is wall thickening in small bowel loops consistent with the history of Crohn's. KUB X-Ray 09/08/17 14:18 IMPRESSION: SATISFACTORY PLACEMENT NASOGASTRIC TUBE. Assessment & Plan - Diagnosis (1) Septic shock Is this a current diagnosis for this admission?: Yes Plan: Continues requiring vasopressor support and fluids. Source of infection is due to gram-positive bacteremia and also gram-negative bacilli urinary tract infection (2) Multifocal pneumonia Is this a current diagnosis for this admission?: Yes Plan: Change to cefepime. Would like to cover Pseudomonas. Continue vancomycin and Zithromax (3) Acute renal failure Qualifiers: Acute renal failure type: unspecified Qualified Code(s): N17.9 - Acute kidney failure, unspecified Is this a current diagnosis for this admission?: Yes Plan: Due to hypoperfusion and poor oral intake. We will continue with fluid resuscitation and trending of renal. There has been a slight improvement since admission (4) Severe protein-calorie malnutrition (Robert: less than 60% of standard weight ) Is this a current diagnosis for this admission?: Yes Plan: Patient basically emaciated and therefore will be a major risk factor and increase morbidity (5) Crohns disease Qualifiers: Digestive disease complication type: unspecified complication Is this a current diagnosis for this admission?: Yes Plan: CT scan of the abdomen and pelvis consistent with Crohn's disease. Will continue IV steroids and Flagyl IV (6) Opioid dependence Qualifiers: Substance use status: uncomplicated Qualified Code(s): F11.20 - Opioid dependence, uncomplicated Is this a current diagnosis for this admission?: Yes Plan: Will provide pain management. (7) Cellulitis of left lower extremity Is this a current diagnosis for this admission?: Yes Plan: There has been some improvement on swelling and redness of the left lower extremity.. Discontinued Rocephin and changed to cefepime (8) Coagulopathy Is this a current diagnosis for this admission?: Yes Plan: Concerned about DIC.. Order fibrinogen and d-dimer. We will trend PT and INR. To order vitamin K, fresh frozen plasma (9) Anemia Qualifiers: Anemia type: unspecified type Qualified Code(s): D64.9 - Anemia, unspecified Is this a current diagnosis for this admission?: Yes Plan: Concerns of chronic disease but also there is a possibility that may be due to coagulopathy. Will transfuse 2 units of packed red blood cell and trend (10) Thrombocytopenia Is this a current diagnosis for this admission?: Yes Plan: Concern may be due to coagulopathy. To transfuse 2 units of plateletpheresis and trend (11) Hyponatremia Is this a current diagnosis for this admission?: Yes Plan: Due to severe volume contraction. We will continue fluid resuscitation and trend (12) Bacteremia Is this a current diagnosis for this admission?: Yes Plan: Will continue vancomycin IV since cultures positive for gpc - Time Time Spent with patient: 25-34 minutes Medications reviewed and adjusted accordingly: Yes Anticipated discharge: Other - unable to determine disposition at this time since critical - Inpatient Certification Based on my medical assessment, after consideration of the patient's comorbidities, presenting symptoms, or acuity I expect that the services needed warrant INPATIENT care.: Yes I certify that my determination is in accordance with my understanding of Medicare's requirements for reasonable and necessary INPATIENT services [42 CFR 412.3e].: Yes Medical Necessity: Need Close Monitoring Due to Risk of Patient Decompensation, Need For IV Fluids, Need For Continuous Telemetry Monitoring, Need for IV Antibiotics
[2017-09-09 14:42] LABS: HEMATOCRIT 25.1 % (37.9-51.0); MEAN CORPUSCULAR HEMOGLOBIN 27.3 pg (27.0-33.4); MEAN CORPUSCULAR HGB CONC 33.6 g/dL (32.0-36.0); MEAN CORPUSCULAR VOLUME 81 fl (80-97); RED BLOOD COUNT 3.09 10^6/uL (4.35-5.55); RED CELL DISTRIBUTION WIDTH 18.5 % (11.5-14.0); WHITE BLOOD COUNT 12.8 10^3/uL (4.0-10.5)
[2017-09-09 14:54] LABS: INTERNATIONAL RATION (INR) 2.28; PROTHROMBIN TIME 26.3 SEC (11.4-15.4)
[2017-09-09 15:02] LABS: PLATELET COUNT 20 10^3/uL (150-450)
[2017-09-09 15:03] LABS: HEMOGLOBIN 8.4 g/dL (13.5-17.0)
[2017-09-09] MEDS: AZITHROMYCIN 500 MG in DEXTROSE 5%-WATER 250 ML IV SCH (17:30)
[2017-09-09] MEDS ORDERED: FUROSEMIDE INJ/PF 20 MG/2 ML SDV IV ONE (19:30)
[2017-09-09] MEDS: VANCOMYCIN HCL 1,000 MG in DEXTROSE 5%-WATER 250 ML IV SCH (22:15)
[2017-09-09] MEDS: DEXTROSE 5%-WATER 250 ML with NOREPINEPHRINE BITARTRATE 4 MG IV PRN ×2 (22:15)
[2017-09-10] LABS: HEMATOCRIT 22.6 % (37.9-51.0); MEAN CORPUSCULAR HEMOGLOBIN 27.4 pg (27.0-33.4); MEAN CORPUSCULAR HGB CONC 33.8 g/dL (32.0-36.0); MEAN CORPUSCULAR VOLUME 81 fl (80-97); RED BLOOD COUNT 2.79 10^6/uL (4.35-5.55); RED CELL DISTRIBUTION WIDTH 18.7 % (11.5-14.0)
[2017-09-10] MEDS: METRONIDAZOLE 500 MG/NS RTU 100 ML IV SCH ×3 (00:09→11:51)
[2017-09-10 00:27] LABS: ABSOLUTE LYMPHOCYTES# (MANUAL) 0.1 10^3/uL (0.5-4.7); ABSOLUTE NEUTROPHILS# (MANUAL) 8.9 10^3/uL (1.7-8.2); BAND NEUTROPHILS % (MANUAL) 3 % (3-5); BASOPHILS % (MANUAL) 0 % (0-2); EOSINOPHILS % (MANUAL) 0 % (0-6); LYMPHOCYTES % (MANUAL) 1 % (13-45); MONOCYTES % (MANUAL) 0 % (3-13); SEGMENTED NEUTROPHILS % (MAN) 96 % (42-78); TOTAL CELLS COUNTED 100; TOXIC GRANULATION 1+
[2017-09-10 00:31] LABS: ACANTHOCYTES SLIGHT; ANISOCYTOSIS 2+; BURR CELLS 1+; HYPOCHROMASIA SLIGHT; OVALOCYTES 1+; POIKILOCYTOSIS 3+
[2017-09-10 00:32] LABS: PLATELET COMMENT DECREASED; TARGET CELLS SLIGHT; TEAR DROP CELLS 1+
[2017-09-10 00:34] LABS: HEMOGLOBIN 7.6 g/dL (13.5-17.0); PLATELET COUNT 31 10^3/uL (150-450)
[2017-09-10 00:51] LABS: ANION GAP 15 (5-19); BLOOD UREA NITROGEN 68 mg/dL (7-20); CALCIUM 7.1 mg/dL (8.4-10.2); CARBON DIOXIDE 17 mmol/L (22-30); CHLORIDE 102 mmol/L (98-107); GLUCOSE 190 mg/dL (75-110); POTASSIUM 3.3 mmol/L (3.6-5.0); SODIUM 133.6 mmol/L (137-145)
[2017-09-10] MEDS: POTASSI CL 20 MEQ/50 ML RIDER 20 MEQ/50 ML RTUPB IV SCH ×2 (02:08→04:28)
[2017-09-10] MEDS: LORAZEPAM INJ 2 MG/1 ML VIAL IV PRN (02:26)
[2017-09-10] MEDS ORDERED: OXYCODONE HCL IR 5 MG TABLET ONE (06:26)
[2017-09-10] MEDS ORDERED: OXYCODONE HCL IR 5 MG TABLET NG ONE (06:30)
[2017-09-10] MEDS: METHYLPREDNISOLONE INJ 40 MG/1 ML SDV IV SCH ×2 (06:30→22:19)
[2017-09-10] MEDS ORDERED: LORAZEPAM INJ 2 MG/1 ML VIAL IV PRN ×2 (08:18→12:29)
[2017-09-10 08:27] LABS: HEMATOCRIT 25.9 % (37.9-51.0); HEMOGLOBIN 8.5 g/dL (13.5-17.0); MEAN CORPUSCULAR HEMOGLOBIN 26.6 pg (27.0-33.4); MEAN CORPUSCULAR HGB CONC 32.8 g/dL (32.0-36.0); MEAN CORPUSCULAR VOLUME 81 fl (80-97); RED BLOOD COUNT 3.19 10^6/uL (4.35-5.55); RED CELL DISTRIBUTION WIDTH 17.9 % (11.5-14.0); WHITE BLOOD COUNT 11.7 10^3/uL (4.0-10.5)
[2017-09-10] MEDS ORDERED: FUROSEMIDE INJ/PF 20 MG/2 ML SDV IV SCH ×2 (08:30→09:14)
[2017-09-10] MEDS: IPRATROPIUM/ALBUTEROL 0.5-2.5 MG/3 ML AMPUL NEB SCH ×3 (08:34→20:46)
--- NOTE | 2017-09-10 08:37 | RADIOLOGY REPORT (SQ) ---
EXAM DESCRIPTION: CHEST SINGLE VIEW COMPLETED DATE/TIME: 09/10/2017 7:05 am REASON FOR STUDY: respritory distress COMPARISON: CT chest 09/08/2017 EXAM PARAMETERS: NUMBER OF VIEWS: One view. TECHNIQUE: Single frontal radiographic view of the chest acquired. RADIATION DOSE: NA LIMITATIONS: None. FINDINGS: LUNGS AND PLEURA: Again, multifocal dense airspace disease is present. This has significa ntly increased compared to 09/08/2017. Cavitation of the upper lobe nodules seen on CT exam is very d ifficult to see by plain film. No pleural effusion. No pneumothorax. MEDIASTINUM AND HILAR STRUCTURES: No masses. Contour normal. HEART AND VASCULAR STRUCTURES: Heart normal in size. Normal vasculature. BONES: No acute findings. HARDWARE: Nasogastric tube tip and side port in the stomach. Right jugular central line tip in the s uperior vena cava OTHER: No other significant finding. IMPRESSION: Progression of diffuse bilateral infiltrates, compared to imaging from 09/08/2017 TECHNICAL DOCUMENTATION: JOB ID: [id number] [employer]- All Rights Reserved Reading location - IP/workstation name: [email or web address]
[2017-09-10] MEDS ORDERED: LORAZEPAM INJ 2 MG/1 ML VIAL ONE (08:41)
[2017-09-10 08:43] LABS: ABSOLUTE LYMPHOCYTES# (MANUAL) 0.1 10^3/uL (0.5-4.7); ABSOLUTE NEUTROPHILS# (MANUAL) 11.6 10^3/uL (1.7-8.2); BAND NEUTROPHILS % (MANUAL) 4 % (3-5); BASOPHILS % (MANUAL) 0 % (0-2); EOSINOPHILS % (MANUAL) 0 % (0-6); LYMPHOCYTES % (MANUAL) 0 % (13-45); MONOCYTES % (MANUAL) 0 % (3-13); SEGMENTED NEUTROPHILS % (MAN) 95 % (42-78); TOTAL CELLS COUNTED 100
[2017-09-10 08:44] LABS: ALANINE AMINOTRANSFERASE 28 U/L (21-72); ALBUMIN 1.8 g/dL (3.5-5.0); ALKALINE PHOSPHATASE 38 U/L (38-126); ANION GAP 11 (5-19); ASPARTATE AMINO TRANSFERASE 53 U/L (17-59); BILIRUBIN,TOTAL 1.5 mg/dL (0.2-1.3); BLOOD UREA NITROGEN 62 mg/dL (7-20); CARBON DIOXIDE 15 mmol/L (22-30); CHLORIDE 114 mmol/L (98-107); GLUCOSE 123 mg/dL (75-110); LDH 473 U/L (313-618); POTASSIUM 3.2 mmol/L (3.6-5.0); SODIUM 139.9 mmol/L (137-145); TOTAL PROTEIN 4.6 g/dL (6.3-8.2)
[2017-09-10 08:49] LABS: ANISOCYTOSIS 1+; OVALOCYTES SLIGHT; POIKILOCYTOSIS 2+; POLYCHROMASIA SLIGHT; TOXIC GRANULATION 2+; TOXIC VACUOLATION PRESENT
[2017-09-10 08:50] LABS: SCHISTOCYTES SLIGHT; TARGET CELLS SLIGHT; TEAR DROP CELLS SLIGHT
[2017-09-10 08:52] LABS: PLATELET COMMENT DECREASED
[2017-09-10 08:54] LABS: PLATELET COUNT 29 10^3/uL (150-450)
[2017-09-10 09:11] LABS: PHOSPHORUS 4.5 mg/dL (2.5-4.5)
[2017-09-10] MEDS ORDERED: CALCIUM GLUCONATE 2,222 MG in DEXTROSE 5%-WATER 100 ML IV ONE (09:13)
[2017-09-10 09:18] LABS: PREALBUMIN 4.2 mg/dL (17.6-36.0)
[2017-09-10] MEDS ORDERED: FUROSEMIDE INJ/PF 40 MG/4 ML SDV ONE (09:18)
[2017-09-10] MEDS: CEFEPIME 2 GM/D5W RTU 2 GM/50 ML RTUPB IV SCH (09:22)
[2017-09-10] MEDS: OXYCODONE-ACETAMINOPHEN 5-325 MG TABLET NG PRN (09:28)
--- NOTE | 2017-09-10 10:27 | RADIOLOGY REPORT (SQ) ---
EXAM DESCRIPTION: KUB/ABDOMEN (SINGLE VIEW) COMPLETED DATE/TIME: 09/10/2017 9:48 am REASON FOR STUDY: eval for ileus COMPARISON: CT chest 09/08/2017 KUB 09/09/2017 NUMBER OF VIEWS: One view. TECHNIQUE: Supine radiographic image of the abdomen acquired. LIMITATIONS: None. FINDINGS: Nasogastric tube tip and side port in the stomach. Mcintosh catheter drains the bladder. Mild gaseous distension of multiple small bowel loops in the mid abdomen. There is massive splenomegaly, similar compared to CT exam 09/08/2017. Bones unremarkable IMPRESSION: Nasogastric tube tip and side port in the stomach. Persistent dilated air-filled small bowel loops. Splenomegaly TECHNICAL DOCUMENTATION: JOB ID: [id number] [employer]- All Rights Reserved Reading location - IP/workstation name: [email or web address]
[2017-09-10] MEDS ORDERED: FENTANYL CITRATE INJ/PF 100 MCG/2 ML AMPUL ONE (10:28)
[2017-09-10] MEDS: GABAPENTIN 300 MG CAPSULE PO SCH ×2 (10:32→18:09)
[2017-09-10] MEDS ORDERED: AMINO ACIDS 5%/D25W 1,000 ML IV PRN (11:00)
[2017-09-10] MEDS ORDERED: INSULIN REG, HUMAN 100 UNIT/ML 3 ML VIAL (PYX) SUBCUT PRN (11:00)
[2017-09-10] MEDS: MORPHINE SULFATE 60 MG/60 ML RTUINJ IV PRN (11:11)
[2017-09-10] MEDS ORDERED: CALCIUM GLUCONATE 1000 MG/10 ML INJ IV ONE (11:16)
[2017-09-10 12:30] LABS: INTERNATIONAL RATION (INR) 1.98; PROTHROMBIN TIME 23.6 SEC (11.4-15.4)
--- NOTE | 2017-09-10 12:44 | PDOC PROGRESS REPORT ---
Subjective Progress Note for:: 09/10/17 Subjective:: Unable to obtain due to mental status Review of systems Unable to obtain due to mental status All laboratories and significant diagnostics had been reviewed. Reason For Visit: SEPTIC SHOCK,MULTIFOCAL PNEUMONIA,ABD PAIN Physical Exam Vital Signs: Temp Pulse Resp BP Pulse Ox 95.0 F L 62 13 109/88 H 96 09/10/17 01:52 09/10/17 01:49 09/10/17 06:00 09/10/17 05:59 09/10/17 06:00 Intake & Output 09/09/17 09/10/17 09/11/17 06:59 06:59 06:59 Intake Total 9123 Output Total 200 1310 Balance -200 7813 Weight 65.9 kg General appearance: PRESENT: severe distress, thin Head exam: PRESENT: atraumatic, normocephalic Eye exam: PRESENT: conjunctiva pale, EOMI, PERRLA Ear exam: PRESENT: normal external ear exam Mouth exam: PRESENT: moist Neck exam: PRESENT: full ROM. ABSENT: JVD, lymphadenopathy, tenderness Respiratory exam: PRESENT: crackles, decreased breath sounds Cardiovascular exam: PRESENT: tachycardia. ABSENT: diastolic murmur, systolic murmur Vascular exam: PRESENT: pallor GI/Abdominal exam: PRESENT: rigid, tenderness Musculoskeletal exam: PRESENT: deformity - 3+ edema. ABSENT: ambulatory Neurological exam: PRESENT: altered, other - confused Skin exam: PRESENT: other - Redness and swelling mostly localized to the left lower extremity improved when compared to admission Results Laboratory Results: 09/09/17 23:45 09/09/17 23:45 09/09/17 09/09/17 09/09/17 03:53 08:23 14:25 WBC 12.8 H RBC 3.09 L Hgb 8.4 L Hct 25.1 L MCV 81 MCH 27.3 MCHC 33.6 RDW 18.5 H Plt Count 20 L* D Seg Neutrophils % Lymphocytes % Monocytes % Eosinophils % Basophils % Absolute Neutrophils Absolute Lymphocytes Absolute Monocytes Absolute Eosinophils Absolute Basophils Sodium Potassium Chloride Carbon Dioxide Anion Gap BUN Creatinine Est GFR ( Amer) Est GFR (Non-Af Amer) Glucose Calcium Phosphorus 5.9 H Magnesium Blood Type O POSITIVE Antibody Screen NEGATIVE 09/09/17 09/09/17 23:45 23:45 WBC 9.0 RBC 2.79 L Hgb 7.6 L Hct 22.6 L MCV 81 MCH 27.4 MCHC 33.8 RDW 18.7 H Plt Count 31 L Seg Neutrophils % Not Reportable Lymphocytes % Not Reportable Monocytes % Not Reportable Eosinophils % Not Reportable Basophils % Not Reportable Absolute Neutrophils Not Reportable Absolute Lymphocytes Not Reportable Absolute Monocytes Not Reportable Absolute Eosinophils Not Reportable Absolute Basophils Not Reportable Sodium 133.6 L Potassium 3.3 L Chloride 102 Carbon Dioxide 17 L Anion Gap 15 BUN 68 H Creatinine 2.01 H Est GFR ( Amer) 46 L Est GFR (Non-Af Amer) 38 L Glucose 190 H Calcium 7.1 L Phosphorus Magnesium 2.1 Blood Type Antibody Screen 09/08/17 20:10 Creatine Kinase 74 Impressions: Chest CT 09/08/17 00:00 IMPRESSION: Diffuse multifocal ground-glass and nodular airspace disease with multiple cavitary nodules along with areas of consolidation involving the right middle lobe, lingula, and bilateral lower lobes. Findings are nonspecific and can be secondary to infectious or inflammatory processes including opportunistic infections. Correlate with patient's overall clinical history. Probable mediastinal lymphadenopathy which could be reactive to infectious/ inflammatory process, or neoplastic. Stable hepatosplenomegaly. Nasogastric tube located within the mid esophagus. Recommend advancement. Abdomen/Pelvis CT 09/08/17 13:59 IMPRESSION: 1. Multicentric pneumonia is in both lower lungs. Possible septic emboli. Consider CT the chest for further evaluation. 2. Marked splenomegaly. 3. There is wall thickening in small bowel loops consistent with the history of Crohn's. KUB X-Ray 09/09/17 07:57 IMPRESSION: Nasogastric tube in the stomach. Assessment & Plan - Diagnosis (1) Septic shock Is this a current diagnosis for this admission?: Yes Plan: Source of infection is due to gram-positive bacteremia and also gram-negative bacilli urinary tract infection. Of levofed. Will cut down on fluids due to chronic decreased urinary output (2) Multifocal pneumonia Is this a current diagnosis for this admission?: Yes Plan: Continue vancomycin, Zithromax and Cefepime. Follow-up chest x-ray still showing not much improvement however though can be expected (3) Acute renal failure Qualifiers: Acute renal failure type: unspecified Qualified Code(s): N17.9 - Acute kidney failure, unspecified Is this a current diagnosis for this admission?: Yes Plan: Due to hypoperfusion and poor oral intake. There has been a downward trend however will cut down IV fluids due to increase respiratory distress (4) Severe protein-calorie malnutrition (Robert: less than 60% of standard weight ) Is this a current diagnosis for this admission?: Yes Plan: Patient basically emaciated and therefore will be a major risk factor and increase morbidity. To start TPN (5) Crohns disease Qualifiers: Digestive disease complication type: unspecified complication Is this a current diagnosis for this admission?: Yes Plan: CT scan of the abdomen and pelvis consistent with Crohn's disease. Will decrease IV steroids and continue Flagyl (6) Opioid dependence Qualifiers: Substance use status: uncomplicated Qualified Code(s): F11.20 - Opioid dependence, uncomplicated Is this a current diagnosis for this admission?: Yes Plan: To place patient on morphine drip and add gabapentin since likely patient is withdrawing at this point in time (7) Cellulitis of left lower extremity Is this a current diagnosis for this admission?: Yes Plan: Continues improving (8) Coagulopathy Is this a current diagnosis for this admission?: Yes Plan: PT and INR improved after 4 units of fresh frozen plasma and vitamin K. Will continue trending (9) Anemia Qualifiers: Anemia type: unspecified type Qualified Code(s): D64.9 - Anemia, unspecified Is this a current diagnosis for this admission?: Yes Plan: Concerns of chronic disease but also there is a possibility that may be due to coagulopathy. Improved after transfusing 2 units of packed red blood cell. Will hold off any further transfusion for now since may be fluid overloaded (10) Thrombocytopenia Is this a current diagnosis for this admission?: Yes Plan: Concern may be due to coagulopathy. Improved after 3 plateletpheresis units. To trend (11) Hyponatremia Is this a current diagnosis for this admission?: Yes Plan: Due to severe volume contraction. Resolved (12) Bacteremia Is this a current diagnosis for this admission?: Yes Plan: Will continue vancomycin IV since cultures positive for gpc. Concern about endocarditis. Will change request for echocardiogram to stat (13) Acute respiratory failure with hypoxemia Is this a current diagnosis for this admission?: Yes Plan: To continue BiPAP and oxygen supplementation. To discuss with family about change of full code to DNR as initially discussed on admission - Time Time Spent with patient: 25-34 minutes Medications reviewed and adjusted accordingly: Yes Anticipated discharge: Other - Patient critical and may Within: within 48 hours - Inpatient Certification Based on my medical assessment, after consideration of the patient's comorbidities, presenting symptoms, or acuity I expect that the services needed warrant INPATIENT care.: Yes I certify that my determination is in accordance with my understanding of Medicare's requirements for reasonable and necessary INPATIENT services [42 CFR 412.3e].: Yes Medical Necessity: Need Close Monitoring Due to Risk of Patient Decompensation, Need For Continuous Telemetry Monitoring, Need for Pain Control, Need for IV Antibiotics
--- NOTE | 2017-09-10 12:56 | Progress Note ---
Provider Note Provider Note: Patient respiratory status has gotten progressively worse. When patient was initially admitted we had discussed CODE STATUS. He at that time wanted to be DO NOT RESUSCITATE however I offered for him to be full code within the first 48 hours and then if changing for the worse to revisit things with his mother who would act as he is surrogate. Since his respiratory status had changed for the worse, discussed his overall medical condition with the mother. She was made aware that due to his debilitated status, malnourishment, infection, coagulopathy and possible valve infection that patient may not be able to on the long run survive ventilatory support. She was made aware that because of concern of withdrawing from opioid I have already requested a morphine drip. Also it was mentioned the possibility of even transfering the patient. Patient' s sister was present who assisted to convey thoughts to the mother. Finally she decided for patient to be DO NOT RESUSCITATE. However, will continue efforts without entertaining intubation of this patient as discussed with his mother. Will continue BiPAP and oxygen supplementation
[2017-09-10] MEDS ORDERED: ENALAPRILAT DIHYDRATE INJ/PF 1.25 MG/1 ML SDV IV ONE (13:15)
[2017-09-10] MEDS ORDERED: POTASSI CL 20 MEQ/50 ML RIDER 20 MEQ/50 ML RTUPB IV ONE (13:44)
[2017-09-10] MEDS: FUROSEMIDE INJ/PF 20 MG/2 ML SDV IV SCH ×2 (13:45→22:19)
--- NOTE | 2017-09-10 14:05 | RADIOLOGY REPORT (SQ) ---
EXAM DESCRIPTION: CHEST SINGLE VIEW COMPLETED DATE/TIME: 09/10/2017 1:27 pm REASON FOR STUDY: follow up COMPARISON: Chest films 09/08/2017, 09/10/[address] chest 09/10/2017 EXAM PARAMETERS: NUMBER OF VIEWS: One view. TECHNIQUE: Single frontal radiographic view of the chest acquired. RADIATION DOSE: NA LIMITATIONS: None. FINDINGS: LUNGS AND PLEURA: Prior opacification of both lungs with dense airspace disease, pneumonia versus edema versus ARDS. No pleural effusion. No pneumothorax. MEDIASTINUM AND HILAR STRUCTURES: No masses. Contour normal. HEART AND VASCULAR STRUCTURES: No cardiomegaly BONES: No acute findings. HARDWARE: Right jugular central line tip superior vena cava. Nasogastric tube tip and side port in t he stomach. OTHER: No other significant finding. IMPRESSION: Further opacification of both lungs from edema versus pneumonia versus ARDS TECHNICAL DOCUMENTATION: JOB ID: [id number] [employer]- All Rights Reserved Reading location - IP/workstation name: [email or web address]
[2017-09-10] MEDS: POTASSIUM CHLORIDE 20 MEQ/50 ML RTU IV SCH ×2 (15:14→15:17)
[2017-09-10] MEDS ORDERED: PIPERACILLIN/TAZOBACTAM 3.375 GM VIAL IV ONE (17:35)
[2017-09-10] MEDS ORDERED: PIPERACILLIN SODIUM/TAZOBACTAM 4.5 GM in NORMAL SALINE 100 ML IV SCH (18:00)
[2017-09-10] MEDS: AZITHROMYCIN 500 MG in DEXTROSE 5%-WATER 250 ML IV SCH (18:09)
[2017-09-10] MEDS ORDERED: PIPERACILLIN/TAZOBACTAM 3.375 GM VIAL IV PRN (19:18)
[2017-09-10] MEDS ORDERED: PIPERACILLIN SODIUM/TAZOBACTAM 3.375 GM in NORMAL SALINE 100 ML IV ONE (19:30)
[2017-09-10] MEDS ORDERED: LISINOPRIL 5 MG TABLET PO SCH (22:00)
[2017-09-10] MEDS: VANCOMYCIN HCL 1,000 MG in DEXTROSE 5%-WATER 250 ML IV SCH (22:18)
[2017-09-10] MEDS: DEXTROSE 5%-WATER 250 ML with NOREPINEPHRINE BITARTRATE 4 MG IV PRN ×2 (22:19)
[2017-09-11] MEDS: GABAPENTIN 300 MG CAPSULE PO SCH (02:08)
[2017-09-11] MEDS: MORPHINE SULFATE 60 MG/60 ML RTUINJ IV PRN (04:15)
[2017-09-11] MEDS: FUROSEMIDE INJ/PF 20 MG/2 ML SDV IV SCH (05:27)
[2017-09-11 05:53] LABS: INTERNATIONAL RATION (INR) 2.06; PROTHROMBIN TIME 24.3 SEC (11.4-15.4)
[2017-09-11 06:00] LABS: ALANINE AMINOTRANSFERASE 23 U/L (21-72); ALBUMIN 2.2 g/dL (3.5-5.0); ALKALINE PHOSPHATASE 44 U/L (38-126); ANION GAP 9 (5-19); ASPARTATE AMINO TRANSFERASE 47 U/L (17-59); BILIRUBIN,DIRECT 0.9 mg/dL (0.0-0.4); BILIRUBIN,TOTAL 1.2 mg/dL (0.2-1.3); BLOOD UREA NITROGEN 76 mg/dL (7-20); CALCIUM 7.7 mg/dL (8.4-10.2); CARBON DIOXIDE 21 mmol/L (22-30); CHLORIDE 110 mmol/L (98-107); GLUCOSE 181 mg/dL (75-110); POTASSIUM 3.8 mmol/L (3.6-5.0); SODIUM 140.3 mmol/L (137-145); TOTAL PROTEIN 5.6 g/dL (6.3-8.2); TRIGLYCERIDES 92 mg/dL (<150)
[2017-09-11 06:05] LABS: HEMATOCRIT 24.7 % (37.9-51.0); HEMOGLOBIN 8.1 g/dL (13.5-17.0); MEAN CORPUSCULAR HEMOGLOBIN 26.8 pg (27.0-33.4); MEAN CORPUSCULAR HGB CONC 32.9 g/dL (32.0-36.0); MEAN CORPUSCULAR VOLUME 82 fl (80-97); RED BLOOD COUNT 3.02 10^6/uL (4.35-5.55); RED CELL DISTRIBUTION WIDTH 18.4 % (11.5-14.0); WHITE BLOOD COUNT 9.6 10^3/uL (4.0-10.5)
[2017-09-11 06:07] LABS: PREALBUMIN 4.3 mg/dL (17.6-36.0)
[2017-09-11 06:40] LABS: PLATELET COUNT 18 10^3/uL (150-450)
[2017-09-11] MEDS ORDERED: NORMAL SALINE 250 ML IV PRN ×2 (07:00)
[2017-09-11] MEDS ORDERED: NOREPINEPHRINE BITARTRATE INJ/PF 4 MG/4 ML SDV IV ONE (07:09)
[2017-09-11] MEDS: IPRATROPIUM/ALBUTEROL 0.5-2.5 MG/3 ML AMPUL NEB SCH ×2 (08:09→14:04)
[2017-09-11] MEDS ORDERED: DEXTROSE 40% GEL 15 GM TUBE NG PRN ×2 (09:30)
[2017-09-11] MEDS ORDERED: FAT EMULSIONS 250 ML IV SCH (10:00)
[2017-09-11] MEDS ORDERED: MEROPENEM 1 GM in NORMAL SALINE 50 ML IV SCH (10:00)
[2017-09-11] MEDS ORDERED: GABAPENTIN 300 MG CAPSULE NG SCH (10:00)
--- NOTE | 2017-09-11 11:03 | XCELERA REPORT ---
[address] [address] Transthoracic Echocardiogram Report Name: LORELEI ALFARO Age: 36 yrs Gender: Male : 1980 Patient Status: Inpatient Patient Location: ICU^610^A Study Date: 09/11/2017 09:57 AM Height: 73 in Weight: 160 lb BSA: 2.0 m2 Procedure: A complete two-dimensional transthoracic echocardiogram was performed (2D, M-mode, spectral and color flow Doppler). The study was technically adequate with some images being suboptimal in quality. Reason For Study: eval for endocarditis Ordering Physician: NEFTALY MILNER Performed By: Connie Freedman Interpretation Summary There is a large vegetation or mass on the tricuspid valve. Left ventricular systolic function is mild to moderately reduced. The Ejection Fraction estimate is 35-40% There is borderline concentric left ventricular hypertrophy. The left ventricle is grossly normal size. LV diastolic function could not be adequately assessed. There is mild to moderate global hypokinesis of the left ventricle. The right ventricular systolic function is normal. Borderline left atrial enlargement. The right atrium is normal in size There is a trace amount of mitral regurgitation There is no mitral valve stenosis. No aortic regurgitation is present. There is no aortic valve stenosis There is a moderate to severe amount of tricuspid regurgitation There is no tricuspid stenosis. The aortic root is not well visualized but is probably normal size. The inferior vena cava appeared dilated and decreased < 50% with respiration (RAP 15-20 mmHg) There is no pericardial effusion. MMode/2D Measurements & Calculations RVDd: 3.0 cm LVIDd: 4.9 cm FS: 9.1 % Ao root diam: IVSd: 0.88 cm LVIDs: 4.4 cm EDV(Teich): 2.6 cm LVPWd: 0.88 cm 110.4 ml Ao root area: ESV(Teich): 88.2 ml 5.4 cm2 EF(Teich): 20.1 % LA dimension: 3.6 cm LVLd ap4: 8.9 cm SV(MOD-sp4): EDV(MOD-sp4): 52.0 ml 123.0 ml LVLs ap4: 7.9 cm ESV(MOD-sp4): 71.0 ml EF(MOD-sp4): 42.3 % Doppler Measurements & Calculations MV E max roslyn: MV P1/2t max roslyn: Ao V2 max: LV V1 max P.3 cm/sec 70.1 cm/sec 110.9 cm/sec 2.2 mmHg MV A max roslyn: MV P1/2t: 50.1 msec Ao max PG: LV V1 max: 45.0 cm/sec MVA(P1/2t): 4.4 cm2 4.9 mmHg 74.0 cm/sec MV E/A: 1.5 MV dec slope: 409.9 cm/sec2 MV dec time: 0.17 sec PA V2 max: PI end-d roslyn: TR max roslyn: 78.0 cm/sec 149.3 cm/sec 332.6 cm/sec PA max PG: TR max P.4 mmHg 44.2 mmHg Left Ventricle The left ventricle is grossly normal size. There is borderline concentric left ventricular hypertrophy. Left ventricular systolic function is mild to moderately reduced. The Ejection Fraction estimate is 35-40%. LV diastolic function could not be adequately assessed. There is mild to moderate global hypokinesis of the left ventricle. Right Ventricle The right ventricle is grossly normal size. There is normal right ventricular wall thickness. The right ventricular systolic function is normal. Atria The right atrium is normal in size. Borderline left atrial enlargement. Mitral Valve The mitral valve is grossly normal. There is no mitral valve stenosis. There is a trace amount of mitral regurgitation. Aortic Valve The aortic valve is grossly normal. There is no aortic valve stenosis. No aortic regurgitation is present. Tricuspid Valve The tricuspid valve is not well visualized, but is grossly normal. There is a large vegetation or mass on the tricuspid valve. There is no tricuspid stenosis. There is a moderate to severe amount of tricuspid regurgitation. Pulmonic Valve The pulmonic valve is not well seen, but is grossly normal. Great Vessels The aortic root is not well visualized but is probably normal size. The inferior vena cava appeared dilated and decreased < 50% with respiration (RAP 15-20 mmHg). Effusions There is no pericardial effusion. : NEFTALY MILNER > Paras Rodriguez
[2017-09-11] MEDS: METHYLPREDNISOLONE INJ 40 MG/1 ML SDV IV SCH (11:54)
--- NOTE | 2017-09-11 11:57 | PDOC TRANSFER SUMMARY ---
General Admission Date/PCP: 09/08/17 16:47 Resuscitation Status: Full Code - Transfer Diagnosis (1) Septic shock Is this a current diagnosis for this admission?: Yes (2) Multifocal pneumonia Is this a current diagnosis for this admission?: Yes (3) Acute renal failure Is this a current diagnosis for this admission?: Yes (4) Severe protein-calorie malnutrition (Robert: less than 60% of standard weight ) Is this a current diagnosis for this admission?: Yes (5) Crohns disease Is this a current diagnosis for this admission?: Yes (6) Opioid dependence Is this a current diagnosis for this admission?: Yes (7) Cellulitis of left lower extremity Is this a current diagnosis for this admission?: Yes (8) Coagulopathy Is this a current diagnosis for this admission?: Yes (9) Anemia Is this a current diagnosis for this admission?: Yes (10) Thrombocytopenia Is this a current diagnosis for this admission?: Yes (11) Hyponatremia Is this a current diagnosis for this admission?: Yes (12) Acute respiratory failure with hypoxemia Is this a current diagnosis for this admission?: Yes (13) MSSA (methicillin susceptible Staphylococcus aureus) septicemia Is this a current diagnosis for this admission?: Yes (14) Endocarditis due to methicillin susceptible Staphylococcus aureus (MSSA) Is this a current diagnosis for this admission?: Yes (15) CHF (congestive heart failure) Is this a current diagnosis for this admission?: Yes (16) Tricuspid valve regurgitation due to infection Is this a current diagnosis for this admission?: Yes - Transfer Medications Home Medications: Oxycodone HCl 15 mg PO BIDP PRN 09/08/17 Oxymorphone HCl [Oxymorphone HCl ER] 30 mg PO Q8 09/08/17 Transfer Medications: Current Medications Acetaminophen (Tylenol 325 Mg Tablet) 325 mg NG Q4HP PRN PRN Reason: FOR PAIN OR TEMP Stop: 10/08/17 14:12 Acetylcysteine (Mucomist 20% Soln 800 Mg/4 Ml) 600 mg NEB RTBID REGINALD Stop: 10/11/17 19:59 Albuterol (Ventolin 0.083% Neb 2.5 Mg/3 Ml Ampul) 2.5 mg NEB RTQ2HP PRN PRN Reason: SHORTNESS OF BREATH Stop: 10/08/17 14:12 Albuterol/Ipratropium (Duoneb 3 Ml Ampul) 3 ml NEB [id number] [facility] Stop: 10/08/17 19:59 Last Admin: 09/11/17 08:09 Dose: 3 ml Dextrose (Dextrose Inj 50% Syringe (25 Gm/50 Ml)) 12.5 gm IV PRN PRN; Protocol PRN Reason: FOR BG 50-69 IN ALERT PATIENT Stop: 10/08/17 22:15 Dextrose (Dextrose Inj 50% Syringe (25 Gm/50 Ml)) 25 gm IV PRN PRN; Protocol PRN Reason: PER PROTOCOL Stop: 10/08/17 22:15 Gabapentin (Neurontin 300 Mg Capsule) 600 mg NG Q8A REGINALD Stop: 10/10/17 09:59 Glucagon (Glucagen Inj 1 Mg Vial) 1 mg IM PRN PRN; Protocol PRN Reason: Evaluate for BG < 70 Stop: 10/08/17 22:15 Glucose (Glutose 40% Gel 15 Gm Tube) 15 gm NG PRN PRN; Protocol PRN Reason: FOR BG 50-69 IN ALERT PATIENT Stop: 10/08/17 22:15 Glucose (Glutose 40% Gel 15 Gm Tube) 30 gm NG PRN PRN; Protocol PRN Reason: FOR BG < 50 IN ALERT PATIENT Stop: 10/08/17 22:15 Norepinephrine Bitartrate 4 mg (/ Dextrose) 250 mls @ 0 mls/hr IV CONTINUOUS PRN; Protocol; Titrate PRN Reason: THIS MED IS NOT "PRN" Stop: 10/08/17 14:12 Last Admin: 09/10/17 22:19 Dose: 4 mg Morphine Sulfate (Morphine Materials Specialist 60 Mg/60 Ml Premix Vial) 60 mg in 60 mls @ 0 mls /hr IV ASDIR PRN; Protocol; Per Protocol PRN Reason: THIS MED IS NOT "PRN" Stop: 09/17/17 09:49 Last Admin: 09/11/17 04:15 Dose: 60 ml Amino Acids (Clinimix 5%-25% Tpn Solution 1000 Ml Bag) 1,000 mls @ 45 mls/hr IV .CONTINUOUS PRN PRN Reason: THIS MED IS NOT "PRN" Stop: 10/10/17 10:59 Last Admin: 09/10/17 14:27 Dose: 1,000 ml Fat Emulsion Intravenous (Intralipid 20% Inj 50 Gm/250 Ml Bag) 250 mls @ 50 mls /hr IV MoTh@1000 REGINALD PRN Reason: Protocol Stop: 10/11/17 09:59 Sodium Chloride (Nacl 0.9% 250 Ml Iv Soln) 250 mls @ 30 mls/hr IV .DURING TRANSFUSION PRN PRN Reason: THIS MED IS NOT "PRN" Stop: 09/12/17 06:59 Sodium Chloride (Nacl 0.9% 250 Ml Iv Soln) 250 mls @ 0 mls/hr IV CONTINUOUS PRN ; As Directed PRN Reason: AFTER EACH UNIT Stop: 09/12/17 06:59 Meropenem 1 gm/ Sodium (Chloride) 50 mls @ 100 mls/hr IV Q8A [facility] Stop: 09/18/17 09:59 Insulin Human Regular (Humulin R (Pyxis) Insulin 100 Unit/Ml 3ml) 0 - 12 unit SUBCUT Q6HP PRN; Protocol PRN Reason: PER PROTOCOL Stop: 10/10/17 10:59 Lorazepam (Ativan Inj 2 Mg/1 Ml Vial) 1 mg IV Q2HP PRN PRN Reason: ANXIETY/AGITATION Stop: 09/17/17 12:26 Methylprednisolone Sodium Succinate (Solu-Medrol Inj/Pf 40 Mg/1 Ml Sdv) 40 mg IV Q12 [facility] Stop: 10/10/17 21:59 Last Admin: 09/10/17 22:19 Dose: 40 mg Ondansetron HCl (Zofran Inj/Pf 4 Mg/2 Ml Sdv) 4 mg IV Q6HP PRN PRN Reason: FOR NAUSEA/VOMITING Stop: 10/08/17 14:12 Oxycodone/Acetaminophen (Percocet 5-325 Mg Tablet) 2 tab NG Q4HP PRN PRN Reason: PAIN SCALE OF 5 Stop: 09/15/17 14:12 Last Admin: 09/10/17 09:28 Dose: 2 tab Pharmacy Profile Note (Medication Communication Order) 1 each .NOTICE NR Stop: 10/09/17 07:59 Sodium Chloride (Saline Flush 2.5 Ml Monoject Prefil Syrin) 2.5 ml IV Q8 [facility] Stop: 10/08/17 21:59 Last Admin: 09/11/17 05:28 Dose: Not Given - Allergies Allergies/Adverse Reactions: No Known Allergies Allergy (Verified 09/08/17 13:06) - Diet/Activity Discharge Diet: Other (Comments) - TPN Discharge Activity: Bedrest Hospital Course Hospital Course: HPI LORELEI ALFARO is a 36 year old male was brought by his mother by private vehicle to ED. Accordingly patient had been sick for the past 2 weeks. On the day of admission he had been spitting up blood. Patient stated that he has been having abdominal pain. Had not been eating. He complained of generalized weakness. Patient also complained of chills and some fever. He has a history of Crohn's disease however has not been taking his regular medications because of losing his insurance. Upon arrival to emergency room blood pressure was in the low 70s and there was poor IV access. Due to patient's presentation a central line was inserted for fluid resuscitation.Our service was consulted and at the time of consult blood work was pending. We recommended that ED physician to request a CT scan of the chest and abdomen and pelvis after evaluating patient. We inquired patient if he does have a history of HIV however he denied. Patient does have a history of drug abuse but he stated that he takes oxymorphone and OxyIR for pain. He denied doing IV drugs. Patient was explained about the seriousness of his medical condition. He initially wanted not to be resuscitated but was amenable to go for full code at least for the first 48 hours and his mother was to make decisions for him afterwords if unable to do it by himself Patient was admitted to intensive care unit and was placed on Zithromax IV, vancomycin IV and Rocephin IV. Patient required to be placed on fluids and Levophed since was in septic shock. The following day he required to be transfused and during this hospitalization has received a total of 3 units of packed red blood cells. Since coagulopathic patient was administered vitamin K , fresh frozen plasma 4 and platelet pheresis 4. Blood cultures grew MSSA and urine culture grew Klebsiella pneumonia and E. coli. On the day of transfer we had opted to simplify the regimen to meropenem . Mother has been kept abreast of findings including a concern of patient having endocarditis. Echocardiogram obtained on the day of transfer confirmed the suspicion of involvement of tricuspid valve and a low ejection fraction. It is noteworthy to mention that patient was treated with IV Lasix and low-dose CHELSEA inhibitor. We had to stop Lasix since there was a bump in renal function. Patient has been kept on morphine drip for opioid withdrawal and pain management. Patient also was started on TPN since severely malnourished. Family wished for patient to be transferred. Since reasonable request and lack of field merchandiser, hadoop analyst and cardiology service, contacted [facility]. Dr. Joseph accepted patient in transfer. Mother would like for patient to be full code. Physical Exam Vital Signs: Temp Pulse Resp BP Pulse Ox 97.7 F 94 19 102/70 98 09/11/17 10:00 09/11/17 10:00 09/11/17 10:01 09/11/17 10:00 09/11/17 10:01 Intake & Output 09/10/17 09/11/17 09/12/17 06:59 06:59 06:59 Intake Total 9123 3510 251 Output Total 1310 2907 375 Balance 7813 603 -124 Weight 74 kg General appearance: PRESENT: mild distress, thin. ABSENT: other Head exam: PRESENT: atraumatic, normocephalic Eye exam: PRESENT: conjunctiva pale, EOMI, PERRLA Ear exam: PRESENT: normal external ear exam Mouth exam: PRESENT: moist Neck exam: PRESENT: full ROM. ABSENT: JVD, lymphadenopathy, tenderness Respiratory exam: PRESENT: crackles, tachypnea. ABSENT: unlabored Cardiovascular exam: PRESENT: RRR. ABSENT: diastolic murmur, systolic murmur Vascular exam: PRESENT: normal capillary refill GI/Abdominal exam: PRESENT: guarding, normal bowel sounds, tenderness Extremities exam: PRESENT: tenderness, other - 3+ pitting edema bilaterally Musculoskeletal exam: ABSENT: ambulatory Neurological exam: PRESENT: altered, awake Skin exam: PRESENT: erythema Results Laboratory Results: 09/11/17 05:30 09/11/17 05:30 09/09/17 09/11/17 09/11/17 08:23 05:30 05:30 WBC 9.6 RBC 3.02 L Hgb 8.1 L Hct 24.7 L MCV 82 MCH 26.8 L MCHC 32.9 RDW 18.4 H Plt Count 18 L* Sodium 140.3 Potassium 3.8 Chloride 110 H Carbon Dioxide 21 L Anion Gap 9 BUN 76 H Creatinine 2.11 H Est GFR ( Amer) 43 L Est GFR (Non-Af Amer) 36 L Glucose 181 H Calcium 7.7 L Phosphorus 4.0 Magnesium 2.2 Total Bilirubin 1.2 AST 47 ALT 23 Alkaline Phosphatase 44 Total Protein 5.6 L Albumin 2.2 L Prealbumin 4.3 L Triglycerides 92 Blood Type O POSITIVE Antibody Screen NEGATIVE 09/08/17 20:10 Creatine Kinase 74 Impressions: Chest CT 09/08/17 00:00 IMPRESSION: Diffuse multifocal ground-glass and nodular airspace disease with multiple cavitary nodules along with areas of consolidation involving the right middle lobe, lingula, and bilateral lower lobes. Findings are nonspecific and can be secondary to infectious or inflammatory processes including opportunistic infections. Correlate with patient's overall clinical history. Probable mediastinal lymphadenopathy which could be reactive to infectious/ inflammatory process, or neoplastic. Stable hepatosplenomegaly. Nasogastric tube located within the mid esophagus. Recommend advancement. Abdomen/Pelvis CT 09/08/17 13:59 IMPRESSION: 1. Multicentric pneumonia is in both lower lungs. Possible septic emboli. Consider CT the chest for further evaluation. 2. Marked splenomegaly. 3. There is wall thickening in small bowel loops consistent with the history of Crohn's. KUB X-Ray 09/10/17 00:00 IMPRESSION: Nasogastric tube tip and side port in the stomach. Persistent dilated air-filled small bowel loops. Splenomegaly Chest X-Ray 09/10/17 12:30 IMPRESSION: Further opacification of both lungs from edema versus pneumonia versus ARDS Plan Discharge Plan: Transfer to [facility]. Accepting physician Dr. Joseph Time Spent: Greater than 30 Minutes
[2017-09-11 13:56] VITALS: BP 104/80
[2017-09-11 13:59] LABS: PATH REVIEW PATHOLOGIST REVIEWED
[2017-09-11] MEDS ORDERED: ACETYLCYSTEINE 20% SOLN 800 MG/4 ML VIAL.NEB NEB SCH (20:00)
== END 2017-09-11 13:50 | disposition short-term general hospital (02) | DRG 871 ==
LOC: ER 11:53 → EH 16:47 → ICU 09-09 01:45
PROVIDERS: ADMIT Family Medicine; ATTEND Family Medicine
PROC: 02HV33Z Insertion of Infusion Device into Superior Vena Cava, Percutaneous Approach (ICD-10-PCS; principal; 2017-09-08)
PROC: 30233K1 Transfusion of Nonautologous Frozen Plasma into Peripheral Vein, Percutaneous Approach (ICD-10-PCS; 2017-09-09)
PROC: 30233N1 Transfusion of Nonautologous Red Blood Cells into Peripheral Vein, Percutaneous Approach (ICD-10-PCS; 2017-09-09)
PROC: 30233R1 Transfusion of Nonautologous Platelets into Peripheral Vein, Percutaneous Approach (ICD-10-PCS; 2017-09-09)
PROC: 30233K1 Transfusion of Nonautologous Frozen Plasma into Peripheral Vein, Percutaneous Approach (ICD-10-PCS; 2017-09-11)
PROC: 30233R1 Transfusion of Nonautologous Platelets into Peripheral Vein, Percutaneous Approach (ICD-10-PCS; 2017-09-11)
DX: A41.01 Sepsis due to Methicillin susceptible Staphylococcus aureus (principal); R65.21 Severe sepsis with septic shock; J96.01 Acute respiratory failure with hypoxia; I33.0 Acute and subacute infective endocarditis; J18.9 Pneumonia, unspecified organism; N39.0 Urinary tract infection, site not specified; E43 Unspecified severe protein-calorie malnutrition; D68.9 Coagulation defect, unspecified; D69.6 Thrombocytopenia, unspecified; D64.9 Anemia, unspecified; E87.1 Hypo-osmolality and hyponatremia; N17.9 Acute kidney failure, unspecified; K50.90 Crohn's disease, unspecified, without complications; F11.20 Opioid dependence, uncomplicated; L03.116 Cellulitis of left lower limb; B95.61 Methicillin susceptible Staphylococcus aureus infection as the cause of diseases classified elsewhere; B96.1 Klebsiella pneumoniae [K. pneumoniae] as the cause of diseases classified elsewhere; B96.20 Unspecified Escherichia coli [E. coli] as the cause of diseases classified elsewhere; R10.9 Unspecified abdominal pain; Z68.21 Body mass index [BMI] 21.0-21.9, adult
CPT/HCPCS: 36415; 36430; 36600; 71045; 71250; 74018; 74176; 80048; 80053; 80307; 81001; 82550; 82803; 82962; 83605; 83615; 83690; 83735; 84100; 84134; 84443; 84478; 85025; 85027; 85379; 85384; 85610; 86701; 86850; 86900; 86901; 86920; 87015; 87040; 87070; 87077; 87086; 87088; 87116; 87186; 87205; 87206; 93005; 93010; 93306; 94640; 94660; 96361; 96372; 96374; 96375; 99291; C1751; J0456; J0610; J0692; J0696; J1940; J2060; J2185; J2270; J2543; J2920; J3010; J3370; J3430; J3480; J3490; J7030; J7060; J7620; P9016; P9017; P9035